=== PATIENT | female | born 2000 | race Caucasian/White ===

== ENCOUNTER → 2022-06-06 | Outpatient (CLI) | payer OTHER, SELFPAY ==
--- NOTE | 2022-06-06 14:26 | US_ITS ---
INDICATION: PCOS SCREENING EXAMINATION: Ultrasound US Pelvis Non-OB Complete TECHNIQUE: Transabdominal and transvaginal pelvic ultrasound was performed. Grayscale, spectral waveform, and color flow Doppler evaluation of the adnexa. COMPARISON: None. FINDINGS: UTERUS: Anteverted. The uterus measures 6.8 x 5.1 x 3.2 cm. There is no uterine mass. The endometrial stripe measures 8 mm in AP diameter which is within normal limits. RIGHT OVARY: 2.8 x 2.6 x 2.5 cm. Non-enlarged, normal echogenicity. There is normal arterial inflow and venous outflow present in the right ovary. LEFT OVARY: 2.7 x 3.2 x 2.8 cm. Non-enlarged, normal echogenicity. There is normal arterial inflow and venous outflow present in the left ovary. FREE FLUID: None. US/Pelvic (Non ) IMPRESSION: Unremarkable pelvic ultrasound. Electronically Signed: Bari Templeton MD at 16:04 EST ,
--- NOTE | 2022-06-06 14:27 | US_ITS ---
STUDY: THYROID ULTRASOUND REASON FOR EXAM: Female, 21 years old. Family history of thyroid disorder. TECHNIQUE: Ultrasound evaluation of the thyroid was performed with real-time and static burciaga-scale imaging. COMPARISON: None. FINDINGS: RIGHT LOBE: The right lobe of the thyroid gland measures 5.3 x 1.9 x 1.3 cm. There is a homogeneous echotexture. There are no demonstrated solid, cystic or complex lesions. Abnormal vascularity on Doppler imaging. LEFT LOBE: The left lobe of the thyroid gland measures 4.1 x 1.6 x 1.0 cm. There is a homogeneous echotexture. There are multiple subcentimeters cysts. The largest measures 0.3 cm. Abnormal vascularity on Doppler imaging. ISTHMUS: The isthmus measures 0.2 cm. The regional lymph nodes are normal. US/Thyroid IMPRESSION: Multiple small cysts in the left thyroid. These are considered benign and require no further follow-up. Electronically Signed: Chris Gross DO at 22:55 EST ,
== END | disposition home or self-care (01) ==
PROVIDERS: PCP Family Medicine
DX: E28.2 Polycystic ovarian syndrome (principal); E07.9 Disorder of thyroid, unspecified
CPT/HCPCS: 76536; 76856

== ENCOUNTER → 2022-09-13 | Outpatient (CLI) | payer OTHER, SELFPAY | END | disposition home or self-care (01) | LOC: LAB 08:38 | PROVIDERS: PCP Family Medicine | DX: Z00.00 Encounter for general adult medical examination without abnormal findings (principal) | CPT/HCPCS: 36415 ==